=== PATIENT | female | born 1965 | race Caucasian/White ===

== ENCOUNTER 2023-01-07 12:25 | Emergency (ER) | payer BC ==
[~2023-01-07] VITALS: Ht 162.6 cm; Wt 78.0 kg
[2023-01-07 12:46] VITALS: BP_SYST 131
[2023-01-07] MEDS ORDERED: KETOROLAC TROMETHAMINE 60 MG/2 ML VIAL IM ONE (13:45)
[2023-01-07] MEDS ORDERED: DICL20GE TP (14:57)
[2023-01-07] MEDS ORDERED: IBUP-1971 PO (14:57)
[2023-01-07 15:06] VITALS: BP_SYST 131
== END 2023-01-07 15:06 | disposition home or self-care (01) ==
LOC: SED 12:25
DX: S33.9XXA Sprain of unspecified parts of lumbar spine and pelvis, initial encounter (principal); S20.212A Contusion of left front wall of thorax, initial encounter; S29.9XXA Unspecified injury of thorax, initial encounter; I10 Essential (primary) hypertension; Z79.899 Other long term (current) drug therapy; W07.XXXA Fall from chair, initial encounter; Y93.89 Activity, other specified; Y92.89 Other specified places as the place of occurrence of the external cause; Y99.8 Other external cause status
CPT/HCPCS: 99285; 71250; 72131; 76376; 96372; J1885